=== PATIENT | female | born 1980 | race Hispanic/Latino ===

== ENCOUNTER 2019-04-12 23:15 | Emergency (ER) | payer OTHER ==
[2019-04-13] MEDS ORDERED: METFORMIN HCL 500 MG TABLET ONE (00:04)
== END 2019-04-13 00:22 | disposition home or self-care (01) ==
LOC: EDH 23:15
DX: E11.65 Type 2 diabetes mellitus with hyperglycemia (principal); Z76.0 Encounter for issue of repeat prescription
CPT/HCPCS: 82948; 99282